=== PATIENT | male | born 1980 | race American Indian/Alaskan Native ===

== ENCOUNTER 2016-10-02 12:39 | Emergency (ER) | payer MEDICAID ==
--- NOTE | 2016-10-02 17:38 | Emergency Department Report ---
HPI - General Chief Complaint: Upper Respiratory Infection Time Seen by Provider: 10/02/16 17:37 - HPI HPI: Patient is a 36-year-old male who presents with cough congestion and runny nose 4 days. Patient states symptoms began on Friday. Patient states symptoms again with mild sore throat that is not resolved. Patient states since then is congested has clear to yellow runny nose and moderately yellow sputum productive coughing. Patient denies fevers/chills/nausea/vomiting/abdominal pain/chest pain/ shortness of breath or any other problems. ED Past Medical Hx - Past Medical History Additional medical history: LOSS OF HEARING LEFT EAR. "BALANCE PROBLEMS". SCOLEOSIS - Surgical History Additional Surgical History: LEFT EYE SURGERY - Social History Smoking Status: Never Smoker Substance Use Type: None - Medications Home Medications: Home Medications Medication Instructions Recorded Confirmed Last Taken Type Azithromycin [Zithromax] 250 mg PO DAILY #6 tablet 10/02/16 Unknown Rx Guaifen/Phenyleph/Acetaminophn 1 each PO Q6H #30 tablet 10/02/16 Unknown Rx [Mucinex Fast-Max Cold-Sinus Tb] Loratadine [Claritin] 10 mg PO DAILY #30 tablet 10/02/16 Unknown Rx guaiFENesin/CODEINE [Robitussin AC] 5 ml PO TID #60 oral.liqd 10/02/16 Unknown Rx ED Review of Systems ROS: Stated complaint: COLD SYMPTOMS Other details as noted in HPI Constitutional: denies: chills, fever Eyes: denies: eye pain, eye discharge, vision change ENT: denies: ear pain, throat pain Respiratory: cough. denies: shortness of breath, SOB with exertion, SOB at rest , wheezing Cardiovascular: denies: chest pain, palpitations Endocrine: no symptoms reported Gastrointestinal: denies: abdominal pain, nausea, diarrhea Genitourinary: denies: urgency, dysuria Musculoskeletal: denies: back pain, joint swelling, arthralgia Skin: denies: rash, lesions Neurological: denies: headache, weakness, paresthesias Psychiatric: denies: anxiety, depression Hematological/Lymphatic: denies: easy bleeding, easy bruising Physical Exam - Physical Exam Vital Signs: Vital Signs 10/02/16 14:08 Temperature 97.4 F L Pulse Rate 83 Respiratory 20 Rate Blood Pressure 109/71 O2 Sat by Pulse 97 Oximetry Physical Exam: GENERAL: Alert and oriented x3, no apparent distress, Normal Gait, atraumatic. HEAD: Head is normocephalic and a-traumatic. EYES: Extra ocular muscles are intact. Pupils are equal, round, and reactive to light and accommodation. EARS: symetrical, atraumatic, non tender, ear canal clear and moderate cerumen, tympanic membrance non inflamed. gross auditory nml bilaterally. NOSE: Nose symetrical, Nontender,Nares have rhinorrhea bilaterally. Maxillary sinus tenderness. MOUTH:Mouth is well hydrated and without lesions. Tonsils nonerythematous or swollen, Uvula midline, Tongue not elevated. Mucous membranes are moist. Posterior pharynx clear, no exudate or lesions. Patent airways. NECK: Supple. Non edematous, No carotid bruits. No lymphadenopathy or thyromegaly. LUNGS: Symetrical with respiration, No wheezing, no rales or crackles, CTAB. HEART: S1, S2 present, regular rate and rhythm without murmur, no rubs, no gallops. ABDOMEN: No organomegaly was noted,Positive bowel sounds, soft, and non- distended. . Nontender to palpation on all Quadrants, NO CVA tenderness. NEUROLOGIC: No focal Deficit, Cranial nerves II through XII are grossly intact. No loss of sensation. PSYCHIATRIC: Mood is congruent with affect, denies suicidal or homicidal ideations. SKIN: Warm and dry, No lesions, No ulceration or induration present. ED Course Vital Signs 10/02/16 14:08 Temperature 97.4 F L Pulse Rate 83 Respiratory 20 Rate Blood Pressure 109/71 O2 Sat by Pulse 97 Oximetry ED Medical Decision Making - Medical Decision Making 36yo male presents with sinusitis. ED course: Patient received 10 mL of Tylenol with Codeine and Claritin. Discussed patient to take medication as prescribed antibiotics and symptomatic relief medications to be sent home with discharge Vital signs stable. Patient in no acute distress. Discussed the patient to follow up with primary care physician. Critical care attestation.: If time is entered above; I have spent that time in minutes in the direct care of this critically ill patient, excluding procedure time. ED Disposition Clinical Impression: URI (upper respiratory infection) Qualifiers: URI type: unspecified URI Qualified Code(s): J06.9 - Acute upper respiratory infection, unspecified Sinusitis Qualifiers: Sinusitis location: maxillary Chronicity: subacute Qualified Code(s): J01.00 - Acute maxillary sinusitis, unspecified Disposition: DISCHARGED TO HOME OR SELFCARE Is pt being admited?: No Does the pt Need Aspirin: No Condition: Stable Instructions: Upper Respiratory Infection (ED), Sinusitis (ED) Prescriptions: Azithromycin [Zithromax] 250 mg PO DAILY #6 tablet Guaifen/Phenyleph/Acetaminophn [Mucinex Fast-Max Cold-Sinus Tb] 1 each PO Q6H # 30 tablet guaiFENesin/CODEINE [Robitussin AC] 5 ml PO TID #60 oral.liqd Loratadine [Claritin] 10 mg PO DAILY #30 tablet Referrals: CORNELIUS BIGGS MD [Primary Care Provider] - 3-5 Days FRAN CASTANON MD [Referring] - 3-5 Days ERON CROWE MD [Referring] - 3-[facility] [Outside] - 3-5 Days [facility] [Outside] - 3-5 Days Forms: Work/School Release Form(ED) Time of Disposition: 18:55
[2016-10-02] MEDS ORDERED: CLARITIN PO ONE (18:09)
[2016-10-02] MEDS ORDERED: ROBITUSSIN AC PO ONE (18:10)
[2016-10-02 18:57] VITALS: BP 115/79
== END 2016-10-02 18:57 | disposition home or self-care (01) ==
LOC: ED 12:39
DX: J06.9 Acute upper respiratory infection, unspecified (principal); J01.00 Acute maxillary sinusitis, unspecified; H91.8X2 Other specified hearing loss, left ear; Z98.890 Other specified postprocedural states
CPT/HCPCS: 99282